=== PATIENT | female | born 1965 | race Caucasian/White ===

== ENCOUNTER → 2018-09-15 | Outpatient (CLI) | payer OTHER ==
[~2018-09-15] MED LIST: ATEN25 PO; AZIT250 PO; BP MEDS; CEPH500 PO; CIPR500 PO; CONEST1.25 PO; METF500; METF500 PO; NEOPOLHCSU; OLME20 PO; OTC COLD MEDS; OXYACE5T PO; RXCEPH500 PO; RXNEOPOLHC AD; RXOXYACE PO; SIMV10 PO
[2018-09-15 14:09] LABS: Alanine Aminotransfer (ALT/SGP 33 U/L (12-78); Albumin, Blood 3.2 g/dL (3.4-5.0); Albumin/Globulin Ratio 0.8 (0.8-1.8); Alk Phos 101 U/L (50-136); Anion Gap 5 mmol/L (6-16); Aspartate Aminotrans (AST/SGOT 19 U/L (12-37); Bilirubin, Total 0.4 mg/dL (0.1-1.0); Blood Urea Nitrogen 13 mg/dL (8-24); CO2, Blood 30 mmol/L (21-32); Calcium, Blood 8.9 mg/dL (8.5-10.1); Chloride, Blood 101 mmol/L (98-108); Cholesterol 191 mg/dL (50-200); Creatinine, Blood 0.62 mg/dL (0.40-1.00); Glomerular Filtration Rate >60 (60-); Glucose, Blood 230 mg/dL (70-99); HDL Cholesterol 38 mg/dL (>39); LDL/HDL RATIO 3.2; Low Density Lipoprotein Chol 123 mg/dL (0-110); Potassium, Blood 4.8 mmol/L (3.5-5.5); Sodium, Blood 136 mmol/L (136-145); Total Protein, Blood 7.2 g/dL (6.4-8.2); Triglycerides 151 mg/dL (30-160); Very Low Density Lipoprot Chol 30 mg/dL (6-32)
== END | disposition home or self-care (01) ==
LOC: LAB SHORT 13:39 → LAB 13:39
PROVIDERS: Hospitalist
DX: E11.65 Type 2 diabetes mellitus with hyperglycemia (principal); E78.5 Hyperlipidemia, unspecified; I10 Essential (primary) hypertension
CPT/HCPCS: 80053; 80061; 82043; 83036

== ENCOUNTER 2020-11-09 22:30 | Emergency (ER) | payer OTHER ==
[~2020-11-09] VITALS: Ht 167.6 cm; Wt 139.7 kg
[2020-11-09 23:06] LABS: BASOPHILS ABSOLUTE AUTO 0.05 K/mm3 (0.00-0.23); BASOPHILS PERCENT AUTO 1 % (0-2); EOSINOPHILS ABSOLUTE AUTO 0.09 K/mm3 (0.00-0.68); EOSINOPHILS PERCENT AUTO 1 % (0-6); Hematocrit 33.3 % (33.0-51.0); Hemoglobin 10.3 g/dL (11.5-16.0); IMMATURE GRAN ABSOLUTE AUTO 0.33 K/mm3 (0.00-0.10); IMMATURE GRAN PERCENT AUTO 4 % (0-1); LYMPHOCYTES ABSOLUTE AUTO 1.61 K/mm3 (0.84-5.20); LYMPHOCYTES PERCENT AUTO 19 % (21-46); MONOCYTES ABSOLUTE AUTO 1.21 K/mm3 (0.16-1.47); MONOCYTES PERCENT AUTO 14 % (4-13); Mean Corpuscular HGB 25.5 pg (26.0-34.0); Mean Corpuscular HGB Conc 30.9 g/dL (31.5-36.5); Mean Corpuscular Volume 82 fL (80-100); Mean Platelet Volume 9.3 fL (9.1-12.4); NEUTROPHILS ABSOLUTE AUTO 5.26 K/mm3 (1.96-9.15); NEUTROPHILS PERCENT AUTO 61 % (41-73); NRBC ABSOLUTE 0.02 K/mm3 (0.00-0.02); NRBC Auto 0.2 /100 WBC (0.0-0.2); Platelet Count 268 K/mm3 (150-400); RDW Coefficient Variation 16.7 % (11.7-14.2); RDW Standard Deviation 48.4 fL (35.1-46.3); Red Blood Cell Count 4.04 M/mm3 (3.80-5.20); White Blood Cell Count 8.55 K/mm3 (4.00-11.30)
[2020-11-09 23:25] LABS: Alanine Aminotransfer (ALT/SGP 28 U/L (12-78); Albumin, Blood 2.1 g/dL (3.4-5.0); Albumin/Globulin Ratio 0.4 (0.8-1.8); Alk Phos 95 U/L (50-136); Anion Gap 6 mmol/L (6-16); Aspartate Aminotrans (AST/SGOT 27 U/L (12-37); Bilirubin, Total 0.6 mg/dL (0.1-1.0); Blood Urea Nitrogen 9 mg/dL (8-24); Bun/Creatinine Ratio 13.1 (12.0-20.0); CO2, Blood 28 mmol/L (21-32); Chloride, Blood 98 mmol/L (98-108); Creatinine, Blood 0.69 mg/dL (0.40-1.00); Globulin, Blood 5.7 g/dL (2.2-4.0); Glomerular Filtration Rate >60 (60-); Glucose, Blood 158 mg/dL (70-99); Potassium, Blood 3.5 mmol/L (3.5-5.5); Sodium, Blood 132 mmol/L (136-145); Total Protein, Blood 7.8 g/dL (6.4-8.2)
== END 2020-11-09 23:53 | disposition home or self-care (01) ==
LOC: ER 22:30
PROVIDERS: Student in an Organized Health Care Education/Training Program
DX: Z48.01 Encounter for change or removal of surgical wound dressing (principal); I10 Essential (primary) hypertension; E11.9 Type 2 diabetes mellitus without complications; Z88.0 Allergy status to penicillin; Z88.5 Allergy status to narcotic agent; Z79.899 Other long term (current) drug therapy
CPT/HCPCS: 36415; 80053; 82947; 85025; 99283

== ENCOUNTER 2020-11-27 00:52 | Day surgery (SDC) | payer OTHER | END 2020-11-27 23:32 | disposition home or self-care (01) | LOC: WOUND 00:52 | DX: T81.30XA Disruption of wound, unspecified, initial encounter (principal); E11.622 Type 2 diabetes mellitus with other skin ulcer; Y83.8 Other surgical procedures as the cause of abnormal reaction of the patient, or of later complication, without mention of misadventure at the time of the procedure; Z88.0 Allergy status to penicillin; Z87.891 Personal history of nicotine dependence; Z98.84 Bariatric surgery status | CPT/HCPCS: G0463 ==

== ENCOUNTER 2020-11-29 02:51 | Day surgery (SDC) | payer OTHER | END 2020-11-29 23:32 | disposition home or self-care (01) | LOC: WOUND | DX: T81.30XA Disruption of wound, unspecified, initial encounter (principal); E11.622 Type 2 diabetes mellitus with other skin ulcer; Z98.84 Bariatric surgery status; T81.30XD Disruption of wound, unspecified, subsequent encounter | CPT/HCPCS: G0463 ==

== ENCOUNTER 2020-12-01 05:00 | Day surgery (SDC) | payer OTHER | END 2020-12-01 23:40 | disposition home or self-care (01) | LOC: WOUND 05:00 | DX: T81.31XA Disruption of external operation (surgical) wound, not elsewhere classified, initial encounter (principal); S31.103A Unspecified open wound of abdominal wall, right lower quadrant without penetration into peritoneal cavity, initial encounter; E11.622 Type 2 diabetes mellitus with other skin ulcer; X58.XXXA Exposure to other specified factors, initial encounter; Y83.8 Other surgical procedures as the cause of abnormal reaction of the patient, or of later complication, without mention of misadventure at the time of the procedure; Z98.84 Bariatric surgery status | CPT/HCPCS: G0463 ==

== ENCOUNTER 2020-12-05 04:33 | Day surgery (SDC) | payer OTHER | END 2020-12-05 22:46 | disposition home or self-care (01) | LOC: WOUND 04:33 | DX: T81.30XA Disruption of wound, unspecified, initial encounter (principal); T81.30XD Disruption of wound, unspecified, subsequent encounter; E11.622 Type 2 diabetes mellitus with other skin ulcer; Z98.84 Bariatric surgery status | CPT/HCPCS: G0463 ==

== ENCOUNTER 2020-12-07 01:43 | Day surgery (SDC) | payer OTHER | END 2020-12-07 23:31 | disposition home or self-care (01) | LOC: WOUND 01:43 | DX: T81.31XA Disruption of external operation (surgical) wound, not elsewhere classified, initial encounter (principal); E11.9 Type 2 diabetes mellitus without complications; Z98.84 Bariatric surgery status; Y83.8 Other surgical procedures as the cause of abnormal reaction of the patient, or of later complication, without mention of misadventure at the time of the procedure | CPT/HCPCS: G0463 ==

== ENCOUNTER 2020-12-13 05:56 | Day surgery (SDC) | payer OTHER ==
[~2020-12-13] VITALS: Ht 167.6 cm; Wt 123.7 kg
[2020-12-13] MEDS ORDERED: HUMALOG KW100 UNIT/1 SC (06:37)
[2020-12-13] MEDS ORDERED: Vitamin B-121000 MCG PO (06:38)
[2020-12-13] MEDS ORDERED: FAMO10 PO (06:39)
--- NOTE | 2020-12-13 06:54 | NUR ---
Ambulatory in [facility] warming gown applied. History, Chart, Medications and Allergies reviewed before start of procedure.Lungs clear T/O to Auscultation. Patient confirms NPO status and agrees with scheduled surgery. Pre-Op teaching done. Pt verbalizes understanding. Patient States Post-Procedure ride home has been arranged. Patient reports completing Chlorhexadine shower X2 prior to admission to hospital.
--- NOTE | 2020-12-13 08:36 | NUR ---
[facility]13[facility]20 0836 [facility]WN WOUND VAC AND WOUND VAC SUPPLIES. SUPPLIES USED AFTER PROCEDURE.
--- NOTE | 2020-12-13 10:00 | NUR ---
Discharge instructions reviewed with patient. Patient verbalizes understanding. Copy given to patient to take home. D/c instruction given to over phone, pt and verbalize understanding. WoundVac case and info given. WoundVac draining to suction. Pt able to stand and assist with dressing, Transfers to W/C with standby assist.
== END 2020-12-13 23:10 | disposition home or self-care (01) ==
LOC: ORSCMMR 05:56 → ORD 09:45 → ORSCMMR 23:10
PROVIDERS: Surgery
PROC: 0J980ZZ Drainage of Abdomen Subcutaneous Tissue and Fascia, Open Approach (ICD-10-PCS; principal; 2020-12-13 07:30)
DX: L02.211 Cutaneous abscess of abdominal wall (principal); T81.49XA Infection following a procedure, other surgical site, initial encounter; I10 Essential (primary) hypertension; K21.9 Gastro-esophageal reflux disease without esophagitis; Z87.891 Personal history of nicotine dependence; E11.9 Type 2 diabetes mellitus without complications; Z79.4 Long term (current) use of insulin; Z79.899 Other long term (current) drug therapy; E66.01 Morbid (severe) obesity due to excess calories; Z68.41 Body mass index [BMI] 40.0-44.9, adult
CPT/HCPCS: 82947; A9270; J0690; J2370; J2405; J2704; J2765; J3010; J7120

== ENCOUNTER 2020-12-15 08:53 | Day surgery (SDC) | payer OTHER ==
[~2020-12-15 08:53] MED LIST changes: +FAMO10 PO; +HUMALOG KW100 UNIT/1 SC; +Vitamin B-121000 MCG PO
== END 2020-12-15 22:42 | disposition home or self-care (01) ==
LOC: WOUND 08:53
DX: T81.30XA Disruption of wound, unspecified, initial encounter (principal); E11.622 Type 2 diabetes mellitus with other skin ulcer; Z98.84 Bariatric surgery status

== ENCOUNTER 2020-12-18 01:31 | Day surgery (SDC) | payer OTHER | END 2020-12-18 22:53 | disposition home or self-care (01) | LOC: WOUND 01:31 | DX: T81.30XA Disruption of wound, unspecified, initial encounter (principal); E11.622 Type 2 diabetes mellitus with other skin ulcer; Z98.84 Bariatric surgery status | CPT/HCPCS: A9270 ==

== ENCOUNTER 2020-12-20 02:14 | Day surgery (SDC) | payer OTHER | END 2020-12-20 23:06 | disposition home or self-care (01) | LOC: WOUND 02:14 | DX: T81.30XA Disruption of wound, unspecified, initial encounter (principal); E11.622 Type 2 diabetes mellitus with other skin ulcer; Z98.84 Bariatric surgery status ==

== ENCOUNTER 2020-12-22 01:51 | Day surgery (SDC) | payer OTHER | END 2020-12-22 12:00 | disposition home or self-care (01) | LOC: WOUND 01:51 | DX: T81.30XA Disruption of wound, unspecified, initial encounter (principal); T81.30XD Disruption of wound, unspecified, subsequent encounter; E11.622 Type 2 diabetes mellitus with other skin ulcer; Z98.84 Bariatric surgery status ==

== ENCOUNTER 2020-12-25 02:40 | Day surgery (SDC) | payer OTHER | END 2020-12-25 12:00 | disposition home or self-care (01) | LOC: WOUND 02:40 | DX: T81.30XA Disruption of wound, unspecified, initial encounter (principal); T81.30XD Disruption of wound, unspecified, subsequent encounter; E11.622 Type 2 diabetes mellitus with other skin ulcer; Z98.84 Bariatric surgery status; Z88.5 Allergy status to narcotic agent; Z88.0 Allergy status to penicillin; Z88.1 Allergy status to other antibiotic agents | CPT/HCPCS: A9270 ==

== ENCOUNTER 2021-01-01 01:48 | Day surgery (SDC) | payer OTHER | END 2021-01-01 22:59 | disposition home or self-care (01) | LOC: WOUND 01:48 | DX: T81.30XD Disruption of wound, unspecified, subsequent encounter (principal); E11.622 Type 2 diabetes mellitus with other skin ulcer; Z98.84 Bariatric surgery status; Z88.0 Allergy status to penicillin; Z88.5 Allergy status to narcotic agent; Z88.1 Allergy status to other antibiotic agents | CPT/HCPCS: A9270; G0463 ==

== ENCOUNTER 2021-01-08 00:09 | Day surgery (SDC) | payer OTHER | END 2021-01-08 22:43 | disposition home or self-care (01) | LOC: WOUND 00:09 | DX: T81.30XD Disruption of wound, unspecified, subsequent encounter (principal); E11.622 Type 2 diabetes mellitus with other skin ulcer; Z98.84 Bariatric surgery status; Z88.0 Allergy status to penicillin; Z88.1 Allergy status to other antibiotic agents; Z88.5 Allergy status to narcotic agent | CPT/HCPCS: A9270; G0463 ==

== ENCOUNTER 2021-01-15 02:36 | Day surgery (SDC) | payer OTHER | END 2021-01-15 23:56 | disposition home or self-care (01) | LOC: WOUND 02:36 | DX: T81.30XD Disruption of wound, unspecified, subsequent encounter (principal); E11.622 Type 2 diabetes mellitus with other skin ulcer; Z98.84 Bariatric surgery status; Z88.5 Allergy status to narcotic agent; Z88.0 Allergy status to penicillin; Z88.1 Allergy status to other antibiotic agents | CPT/HCPCS: A9270; G0463 ==

== ENCOUNTER 2021-01-22 02:17 | Day surgery (SDC) | payer OTHER | END 2021-01-22 23:16 | disposition home or self-care (01) | LOC: WOUND 02:17 | DX: T81.31XA Disruption of external operation (surgical) wound, not elsewhere classified, initial encounter (principal); E11.622 Type 2 diabetes mellitus with other skin ulcer; L98.499 Non-pressure chronic ulcer of skin of other sites with unspecified severity; Y83.8 Other surgical procedures as the cause of abnormal reaction of the patient, or of later complication, without mention of misadventure at the time of the procedure; Z98.84 Bariatric surgery status | CPT/HCPCS: A9270 ==

== ENCOUNTER 2021-01-29 02:52 | Day surgery (SDC) | payer OTHER | END 2021-01-29 23:07 | disposition home or self-care (01) | LOC: WOUND 02:52 | DX: T81.31XA Disruption of external operation (surgical) wound, not elsewhere classified, initial encounter (principal); E11.622 Type 2 diabetes mellitus with other skin ulcer; Z98.84 Bariatric surgery status; Y83.8 Other surgical procedures as the cause of abnormal reaction of the patient, or of later complication, without mention of misadventure at the time of the procedure | CPT/HCPCS: A9270 ==

== ENCOUNTER 2021-02-02 02:39 | Day surgery (SDC) | payer OTHER | END 2021-02-02 23:28 | disposition home or self-care (01) | LOC: WOUND 02:39 | DX: T81.30XD Disruption of wound, unspecified, subsequent encounter (principal); E11.622 Type 2 diabetes mellitus with other skin ulcer; Z98.84 Bariatric surgery status ==

== ENCOUNTER 2021-02-06 02:38 | Day surgery (SDC) | payer OTHER | END 2021-02-06 22:57 | disposition home or self-care (01) | LOC: WOUND 02:38 | DX: T81.31XA Disruption of external operation (surgical) wound, not elsewhere classified, initial encounter (principal); E11.622 Type 2 diabetes mellitus with other skin ulcer; L98.492 Non-pressure chronic ulcer of skin of other sites with fat layer exposed; Y83.8 Other surgical procedures as the cause of abnormal reaction of the patient, or of later complication, without mention of misadventure at the time of the procedure; Z98.84 Bariatric surgery status | CPT/HCPCS: A9270 ==

== ENCOUNTER 2021-02-09 01:33 | Day surgery (SDC) | payer OTHER | END 2021-02-09 23:01 | disposition home or self-care (01) | LOC: WOUND 01:33 | PROC: 2W1QX6Z Compression of Right Lower Leg using Pressure Dressing (ICD-10-PCS; principal; 2021-02-09) | DX: E11.622 Type 2 diabetes mellitus with other skin ulcer (principal); L97.812 Non-pressure chronic ulcer of other part of right lower leg with fat layer exposed; I70.238 Atherosclerosis of native arteries of right leg with ulceration of other part of lower leg; E83.59 Other disorders of calcium metabolism; B37.2 Candidiasis of skin and nail | CPT/HCPCS: G0463 ==

== ENCOUNTER 2021-02-12 00:38 | Day surgery (SDC) | payer OTHER | END 2021-02-12 23:04 | disposition home or self-care (01) | LOC: WOUND 00:38 | DX: T81.31XD Disruption of external operation (surgical) wound, not elsewhere classified, subsequent encounter (principal); Y83.8 Other surgical procedures as the cause of abnormal reaction of the patient, or of later complication, without mention of misadventure at the time of the procedure; E11.622 Type 2 diabetes mellitus with other skin ulcer; Z98.84 Bariatric surgery status; Z88.0 Allergy status to penicillin; Z88.1 Allergy status to other antibiotic agents; Z88.5 Allergy status to narcotic agent | CPT/HCPCS: A9270; G0463 ==

== ENCOUNTER 2021-02-19 02:35 | Day surgery (SDC) | payer OTHER | END 2021-02-19 22:56 | disposition home or self-care (01) | LOC: WOUND 02:35 | DX: T81.30XD Disruption of wound, unspecified, subsequent encounter (principal); E11.622 Type 2 diabetes mellitus with other skin ulcer; Z98.84 Bariatric surgery status | CPT/HCPCS: G0463 ==

== ENCOUNTER → 2021-02-22 | Outpatient (CLI) | payer OTHER | END | disposition home or self-care (01) | LOC: LAB SHORT 09:08 | DX: E11.51 Type 2 diabetes mellitus with diabetic peripheral angiopathy without gangrene (principal) | CPT/HCPCS: 82043 ==

== ENCOUNTER 2021-02-26 04:50 | Day surgery (SDC) | payer OTHER | END 2021-02-26 23:28 | disposition home or self-care (01) | LOC: WOUND 04:50 | DX: T81.30XD Disruption of wound, unspecified, subsequent encounter (principal); E11.622 Type 2 diabetes mellitus with other skin ulcer; Z98.84 Bariatric surgery status | CPT/HCPCS: G0463 ==

== ENCOUNTER 2021-03-05 05:23 | Day surgery (SDC) | payer OTHER | END 2021-03-05 23:00 | disposition home or self-care (01) | LOC: WOUND 05:23 | DX: T81.30XD Disruption of wound, unspecified, subsequent encounter (principal); E11.622 Type 2 diabetes mellitus with other skin ulcer; Z98.84 Bariatric surgery status | CPT/HCPCS: A9270 ==

== ENCOUNTER 2021-03-12 02:54 | Day surgery (SDC) | payer OTHER | END 2021-03-12 22:51 | disposition home or self-care (01) | LOC: WOUND 02:54 | DX: T81.30XD Disruption of wound, unspecified, subsequent encounter (principal); E11.622 Type 2 diabetes mellitus with other skin ulcer; Z98.84 Bariatric surgery status | CPT/HCPCS: A9270; G0463 ==

== ENCOUNTER 2021-03-19 03:49 | Day surgery (SDC) | payer OTHER | END 2021-03-19 12:00 | disposition home or self-care (01) | LOC: WOUND 03:49 | DX: T81.30XD Disruption of wound, unspecified, subsequent encounter (principal); E11.622 Type 2 diabetes mellitus with other skin ulcer; Z98.84 Bariatric surgery status | CPT/HCPCS: G0463 ==

== ENCOUNTER → 2022-09-12 | Outpatient (CLI) | payer OTHER ==
[2022-09-12 19:18] LABS: BASOPHILS ABSOLUTE AUTO 0.06 K/mm3 (0.00-0.23); BASOPHILS PERCENT AUTO 1 % (0-2); EOSINOPHILS ABSOLUTE AUTO 0.17 K/mm3 (0.00-0.68); EOSINOPHILS PERCENT AUTO 2 % (0-6); Hemoglobin 12.1 g/dL (11.5-16.0); IMMATURE GRAN ABSOLUTE AUTO 0.32 K/mm3 (0.00-0.10); IMMATURE GRAN PERCENT AUTO 4 % (0-1); LYMPHOCYTES ABSOLUTE AUTO 1.42 K/mm3 (0.84-5.20); LYMPHOCYTES PERCENT AUTO 19 % (21-46); MONOCYTES ABSOLUTE AUTO 0.82 K/mm3 (0.16-1.47); MONOCYTES PERCENT AUTO 11 % (4-13); Mean Corpuscular HGB 26.7 pg (26.0-34.0); Mean Corpuscular HGB Conc 32.7 g/dL (31.5-36.5); Mean Corpuscular Volume 82 fL (80-100); Mean Platelet Volume 10.4 fL (9.1-12.4); NEUTROPHILS ABSOLUTE AUTO 4.53 K/mm3 (1.96-9.15); NEUTROPHILS PERCENT AUTO 62 % (41-73); Platelet Count 297 K/mm3 (150-400); RDW Coefficient Variation 14.6 % (11.7-14.2); RDW Standard Deviation 43.3 fL (35.1-46.3); Red Blood Cell Count 4.54 M/mm3 (3.80-5.20); White Blood Cell Count 7.32 K/mm3 (4.00-11.30)
[2022-09-12 19:58] LABS: Albumin, Blood 2.8 g/dL (3.4-5.0); Albumin/Globulin Ratio 0.7 (0.8-1.8); Bilirubin, Total 0.4 mg/dL (0.1-1.0); Bun/Creatinine Ratio 27.1 (12.0-20.0); Calcium, Blood 8.3 mg/dL (8.5-10.1); Creatinine, Blood 0.59 mg/dL (0.40-1.00); Globulin, Blood 3.8 g/dL (2.2-4.0); Potassium, Blood 4.6 mmol/L (3.5-5.5); Total Protein, Blood 6.6 g/dL (6.4-8.2)
== END | disposition home or self-care (01) ==
LOC: LAB SHORT 14:15 → LAB 14:15
PROVIDERS: Hospitalist
DX: K81.0 Acute cholecystitis (principal)
CPT/HCPCS: 80053; 85025

== ENCOUNTER → 2023-05-21 | Outpatient (CLI) | payer OTHER ==
[2023-05-21 16:11] LABS: BASOPHILS ABSOLUTE AUTO 0.02 K/mm3 (0.00-0.23); BASOPHILS PERCENT AUTO 0 % (0-2); EOSINOPHILS ABSOLUTE AUTO 0.17 K/mm3 (0.00-0.68); EOSINOPHILS PERCENT AUTO 4 % (0-6); Hematocrit 40.5 % (33.0-51.0); Hemoglobin 12.6 g/dL (11.5-16.0); IMMATURE GRAN ABSOLUTE AUTO 0.01 K/mm3 (0.00-0.10); IMMATURE GRAN PERCENT AUTO 0 % (0-1); LYMPHOCYTES ABSOLUTE AUTO 1.55 K/mm3 (0.84-5.20); LYMPHOCYTES PERCENT AUTO 32 % (21-46); MONOCYTES ABSOLUTE AUTO 0.53 K/mm3 (0.16-1.47); MONOCYTES PERCENT AUTO 11 % (4-13); Mean Corpuscular HGB 25.5 pg (26.0-34.0); Mean Corpuscular HGB Conc 31.1 g/dL (31.5-36.5); Mean Corpuscular Volume 82 fL (80-100); Mean Platelet Volume 11.5 fL (9.1-12.4); NEUTROPHILS ABSOLUTE AUTO 2.63 K/mm3 (1.96-9.15); NEUTROPHILS PERCENT AUTO 54 % (41-73); Platelet Count 209 K/mm3 (150-400); RDW Coefficient Variation 14.7 % (11.7-14.2); RDW Standard Deviation 43.5 fL (35.1-46.3); Red Blood Cell Count 4.95 M/mm3 (3.80-5.20); White Blood Cell Count 4.91 K/mm3 (4.00-11.30)
[2023-05-21 17:27] LABS: Albumin, Blood 3.9 g/dL (3.4-5.0); Albumin/Globulin Ratio 1.1 (0.8-1.8); Bilirubin, Total 0.6 mg/dL (0.1-1.0); Bun/Creatinine Ratio 22.1 (12.0-20.0); Calcium, Blood 9.3 mg/dL (8.5-10.1); Creatinine, Blood 0.77 mg/dL (0.40-1.00); Globulin, Blood 3.5 g/dL (2.2-4.0); Potassium, Blood 4.2 mmol/L (3.5-5.5); Total Protein, Blood 7.4 g/dL (6.4-8.2)
== END | disposition home or self-care (01) ==
LOC: LAB 14:16 → LAB SHORT 14:16
PROVIDERS: Hospitalist
DX: L50.9 Urticaria, unspecified (principal)
CPT/HCPCS: 80053; 85025

== ENCOUNTER → 2024-09-16 | Outpatient (CLI) | payer OTHER ==
[2024-09-16 16:32] LABS: Albumin, Blood 3.6 g/dL (3.4-5.0); Albumin/Globulin Ratio 1.1 (0.8-1.8); Bilirubin, Total 0.4 mg/dL (0.1-1.0); Bun/Creatinine Ratio 18.7 (12.0-20.0); Creatinine, Blood 0.91 mg/dL (0.40-1.00); Globulin, Blood 3.4 g/dL (2.2-4.0); Potassium, Blood 4.7 mmol/L (3.5-5.5)
== END ==
LOC: LAB SHORT 14:59 → LAB 14:59
PROVIDERS: Hospitalist
DX: I10 Essential (primary) hypertension (principal)
CPT/HCPCS: 80053